=== PATIENT | female | born 1965 | race Caucasian/White ===

== ENCOUNTER 2016-12-10 05:48 | Outpatient (CLI) | payer BC, OTHER ==
[~2016-12-10] VITALS: Ht 180.3 cm; Wt 81.6 kg
[2016-12-10] MEDS ORDERED: LORA10TA7 PO (11:06)
== END 2016-12-10 11:12 ==
LOC: PREOP 05:48
PROVIDERS: ATTEND Surgery
DX: Z01.818 Encounter for other preprocedural examination (principal); Z12.11 Encounter for screening for malignant neoplasm of colon

== ENCOUNTER 2016-12-12 10:57 | Day surgery (SDC) | payer BC ==
[~2016-12-12] VITALS: Ht 180.3 cm; Wt 81.6 kg
[~2016-12-12 10:57] MED LIST: LORA10TA7 PO
--- NOTE | 2016-12-12 11:08 | Conscious Sedation/ASA ---
Conscious Sedation Pre-Proced Time Reviewed: 10:30 ASA Class: 2 Airway Mallampati Classification: (cabazon appropriate class) I. II. III, IV Lungs Heart ASA score ASA 1: a normal healthy patient ASA 2: a patient with a mild systemic disease (mid diabetes, controlled hypertension, obesity ASA 3: a patient with a severe systemic disease that limits activity (angina , COPD, prior Myocardial infarction) ASA 4: a patient with an incapacitating disease that is a constant threat to life (CHF, renal failure) ASA 5: a moribund patient not expected to survive 24 hrs. (ruptured aneurysm) ASA 6: a declared brain patient whose organs are being harvested. For emergent operations, add the letter E after the classification Grade 2 Sedation Plan: Analgesia, Amnesia, Plan communicated to team members, Discussed options with patient/fam, Discussed risks with patient/fam Note The patient is an appropriate candidate to undergo the planned procedure, sedation, and anesthesia. The patient immediately re-assessed prior to indication. LIDIA HERNANDEZ MD Dec 12, 2016 11:08 am
[2016-12-12] MEDS ORDERED: NS IV 500 ML 500 ML IV PRN (11:09)
--- NOTE | 2016-12-12 11:09 | Progress Note-Pre Operative ---
Pre-Operative Progress Note H&P Reviewed The H&P was reviewed, patient examined and no changes noted. Date Seen by Provider: Dec 12, 2016 Time Seen by Provider: 10:30 Date H&P Reviewed: Dec 12, 2016 Time H&P Reviewed: 10:30 Pre-Operative Diagnosis: screening colonoscopy LIDIA HERNANDEZ MD Dec 12, 2016 11:09 am
[2016-12-12 11:10] VITALS: BP 109/74
[2016-12-12] MEDS ORDERED: NS IV 500 ML 500 ML ONE (11:14)
[2016-12-12] MEDS ORDERED: HYDROcodone/APAP 5 MG/325 MG (LORTAB) TAB PO PRN (11:15)
[2016-12-12] MEDS ORDERED: ONDANSETRON 4 MG/2 ML (SDV) Z0FRAN IV PRN (11:15)
[2016-12-12] MEDS ORDERED: ACETAMINOPHEN 325 MG TABLET/CAPLET (TYLENOL) PO PRN (11:15)
[2016-12-12] MEDS ORDERED: morphine INJ 10 MG/ML 1ML (SYR OR VIAL) IV PRN (11:15)
[2016-12-12] MEDS ORDERED: LIDOCAINE JELLY 2% (XYLOCAINE) 5 ML TUBE MM PRN (11:15)
[2016-12-12] MEDS ORDERED: LIDOCAINE JELLY 2% (XYLOCAINE) 5 ML TUBE ONE (11:41)
[2016-12-12] MEDS ORDERED: MIDAZOLAM 2 MG/2 ML (VERSED) VIAL ONE ×5 (11:42→12:12)
[2016-12-12] MEDS ORDERED: fentaNYL INJECTION 100 MCG/2 ML AMP ONE ×2 (11:42)
[2016-12-12] MEDS: fentaNYL INJECTION 100 MCG/2 ML AMP IVP PRN ×4 (11:53→12:16)
[2016-12-12] MEDS: MIDAZOLAM 2 MG/2 ML (VERSED) VIAL IVP PRN ×5 (11:54→12:18)
[2016-12-12 12:45] VITALS: BP 121/59
[2016-12-12 13:15] VITALS: BP 94/71
--- NOTE | 2016-12-12 13:19 | Progress Note-Post Operative ---
Post-Operative Progess Note Surgeon (s)/Workers Compensation Manager (s) Surgeon LIDIA HERNANDEZ MD Workers Compensation Manager: none Pre-Operative Diagnosis screening colonoscopy Post-Operative Diagnosis stage 1 chronic ext hemorrhoids. Procedure & Operative Findings Date of Procedure 12/12/16 Procedure Performed/Findings Colonoscopy. Anesthesia Type CS Estimated Blood Loss Estimated blood loss (mL): minimal Specimens/Packing Specimens Removed none LIDIA HERNANDEZ MD Dec 12, 2016 1:19 pm
[2016-12-12 13:25] VITALS: BP 94/71
--- NOTE | 2016-12-13 11:42 | OPERATIVE REPORT ---
DATE OF SERVICE: 12/12/2016 ATTENDING PRIMARY CARE PHYSICIAN: Dr. Don Saucedo. PREOPERATIVE DIAGNOSIS: Screening colonoscopy. POSTOPERATIVE DIAGNOSIS: Mild chronic stage I external hemorrhoids. Remainder of the rectum and colon were normal. PROCEDURE: Colonoscopy. SURGEON: Dr. Hernandez. ANESTHESIA: Conscious sedation. ESTIMATED BLOOD LOSS: Minimal. FINDINGS: Mild chronic stage I external hemorrhoids. The remainder of the rectum and colon were normal. There were no polyps or any neoplasms identified. DISPOSITION: The patient tolerated the procedure well. INDICATIONS: The patient is a 51-year-old female in need of a screening colonoscopy. She has not had a colonoscopy up to this point in her life. She reports for the most part she is doing well and does not report any major issues with diarrhea and/or constipation, as well as no red blood per rectum nor any dark tarry stools. She also does not report any family history of colon cancer. DESCRIPTION OF PROCEDURE: The patient was brought to the endoscopy suite, laid in the left lateral decubitus position. After adequate IV pain and sedating medications and conscious sedation anesthesia, a digital rectal examination was performed. Mild stage I chronic external hemorrhoids were identified, which were not actively edematous nor inflamed and no bleeding. Normal sphincter tone was felt and there were no palpable masses. The endoscope was then intubated to the anus and the rectum gently insufflated. The endoscope was then advanced through the valves of [place] of the rectum with no polyps or any neoplasms identified. We then proceeded through the sigmoid colon where no diverticulosis identified. Endoscope was then advanced to the remainder of the descending, transverse and ascending colon to the cecum. These segments were normal with no polyps or any neoplasms identified. The endoscope was then slowly withdrawn while taking a second look and suctioning all residual air with no additional findings. The patient tolerated the procedure well. We will have her continue with medical management with a high fiber diet with at least 25 grams of fiber per day as well as at least 64 fluid ounces of water daily to promote soft stools on a daily basis. She does not need another colonoscopy for another 10 years. Job ID: [id number] DocumentID: [id number] Dictated Date: 12/12/2016 13:19:35 Analytical Strategist Date: 12/13/2016 00:29:38 Dictated By: LIDIA HERNANDEZ MD
== END 2016-12-12 13:25 | disposition home or self-care (01) ==
LOC: ENDO 10:57
PROVIDERS: ATTEND Surgery
DX: Z12.11 Encounter for screening for malignant neoplasm of colon (principal); K64.0 First degree hemorrhoids; J30.2 Other seasonal allergic rhinitis
CPT/HCPCS: 84703